=== PATIENT | male | born 1970 | race Caucasian/White ===

== ENCOUNTER 2017-08-23 21:13 | Emergency (ER) | payer MEDICAID ==
[~2017-08-23] VITALS: Ht 177.8 cm; Wt 79.0 kg
[~2017-08-23 21:13] MED LIST: ALBU8.5H3 INH; BEN25 PO; EPIN0.3P4 INJ; FAMO-96 PO; PRED20TA PO
[2017-08-23] MEDS ORDERED: FAMOTIDINE 20 MG INJ IV STA (21:19)
[2017-08-23] MEDS ORDERED: DIPHENHYDRAMINE 50 MG INJ IV STA (21:19)
[2017-08-23] MEDS ORDERED: EPINEPHrine 1 MG INJ IM STA (21:19)
[2017-08-23] MEDS ORDERED: METHYLPREDNISOLONE 125 MG INJ IV STA (21:19)
[2017-08-23 21:27] VITALS: TEMP 98.8; Ht 177.8 cm; Wt 79.0 kg
[2017-08-23] MEDS ORDERED: PRED20TA PO (21:55)
--- NOTE | 2017-08-23 22:49 | ERD ---
ER Documentation Chief Complaint Chief Complaint bib family for allergic reaction to shrimp, sob, wheezing, tongue itching HPI Patient is a 47-year-old male with asthma who presents with allergic reaction. The patient said that he ate seafood 45 minutes ago and now feels like his throat is swelling that he cannot breathe. His family gave him "2 pills" which they think might be Benadryl. He said that he ate shrimp and crab despite knowing that he has a seafood allergy. He does not currently have a primary doctor. He did not use his EpiPen at home. ROS All systems reviewed and are negative except as per history of present illness. Medications Home Meds Active Scripts Prednisone* (Prednisone*) 20 Mg Tab, 60 MG PO DAILY for 4 Days, TAB Prov:MIGUEL A GARCIA MD 08/23/17 Discontinued Scripts Albuterol Sulfate* (Proair HFA*) 8.5 Gm Hfa.aer.ad, 2 PUFF INH Q4H Y for WHEEZING AND SOB, #1 INHALER Prov:JONO DESHPANDE DO 09/16/15 Prednisone* (Prednisone*) 20 Mg Tab, 60 MG PO DAILY for 4 Days, TAB Prov:JONO DESHPANDE DO 09/16/15 Epinephrine (Epipen 2-Harpal) 0.3 Mg/0.3 Ml Pen.injctr, 1 EA INJ ONCE Y for ALLERGIC REACTION, #1 EA Prov:JONO DESHPANDE DO 09/16/15 Famotidine* (Pepcid*) 20 Mg Tablet, 20 MG PO BID for 4 Days, TAB Prov:JONO DESHPANDE DO 09/16/15 Diphenhydramine Hcl* (Benadryl*) 25 Mg Cap, 25 MG PO Q6, #30 CAP Prov:JONO DESHPANDE DO 09/16/15 Allergies Allergies: Coded Allergies: No Known Allergy (Unverified , 08/23/17) PMhx/Soc Medical and Surgical Hx: pt denies Medical Hx, pt denies Surgical Hx History of Surgery: No Anesthesia Reaction: No Hx Respiratory Disorders: Yes (ASTHMA) Hx Cardiac Disorders: No Hx Psychiatric Problems: No Hx Miscellaneous Medical Probl: Yes Hx Alcohol Use: No Hx Substance Use: No Hx Tobacco Use: No Smoking Status: Never smoker FmHx Family History: No diabetes Physical Exam Vitals Vital Signs Date Time Temp Pulse Resp B/P Pulse Ox O2 Delivery O2 Flow Rate FiO2 08/23/17 21: 98.8 78 18 145/81 100 08/23/17 21: 98.8 89 18 141/80 100 Room Air Physical Exam Const: Moderate distress secondary to his throat swelling Head: Atraumatic Eyes: Normal Conjunctiva ENT: Mild tongue swelling without stridor at this time Neck: Full range of motion..~ No meningismus. Resp: Clear to auscultation bilaterally Cardio: Regular rate and rhythm, no murmurs Abd: Soft, non tender, non distended. Normal bowel sounds Skin: No petechiae or rashes Back: No midline or flank tenderness Ext: No cyanosis, or edema Neur: Awake and alert Psych: Normal Mood and Affect Results 24 hrs Current Medications Medications (Trade) Dose Ordered Sig/Raymundo Route PRN Reason Start Time Stop Time Status Last Admin Dose Admin Diphenhydramine HCl (Benadryl) 25 mg ONCE STAT IV 08/23/17 21:19 08/23/17 21:20 DC 08/23/17 21:32 Epinephrine (EPINEPHrine) 0.3 mg ONCE STAT IM 08/23/17 21:19 08/23/17 21:20 DC 08/23/17 21:20 Famotidine (Pepcid Iv) 20 mg ONCE STAT IV 08/23/17 21:19 08/23/17 21:20 DC 08/23/17 21:32 Methylprednisolone Sodium Succinate (Solu-Medrol) 125 mg ONCE STAT IV 08/23/17 21:19 08/23/17 21:20 DC 08/23/17 21:32 Procedures/MDM Patient is a 47-year-old male who presents with acute anaphylaxis with throat swelling. The patient was given epinephrine, Solu-Medrol, Benadryl, and Pepcid immediately upon arrival. He was watched for 2 hours and says that he feels much better and that the swelling has gone away. I believe outpatient management is appropriate at this time but the patient will need close follow- up with the primary doctor within 24-48 hours. He will be given information for the local clinics. He will be given a prescription for 4 more days of prednisone and he has an EpiPen at home. He can return for any worsening symptoms. Critical Care: Time: 35 minutes excluding all billable procedures. Treatments/Evaluations: Close monitoring and treatment of unstable vital signs, cardiorespiratory, and neurologic status, while maintaining tight balance of fluid, respiratory, and cardiac interventions. Departure Diagnosis: Primary Impression: Allergic reaction Encounter type: initial encounter Qualified Code: T78.40XA - Allergic reaction, initial encounter Additional Impression: Acute anaphylaxis Encounter type: initial encounter Qualified Code: T78.2XXA - Acute anaphylaxis, initial encounter Condition: Fair Patient Instructions: Anaphylaxis, General [facility]errals: [facility] Usted se bustillo hecho un examen mdico de control que le indica que no est en lindy condicin que requiera tratamiento urgente en el Departamento de Emergencia. Un estudio ms profundo y el tratamiento de newman condicin pueden esperar sin ningn riesgo hasta que usted sea atendida/o en el consultorio de newman mdico o lindy cl kacie. Es responsabilidad suya arreglar lindy lamar para el seguimiento del ariana. MANEJO DE CONDICIONES NO URGENTES EN EL FUTURO 1) Si usted tiene un mdico de atencin primaria: Usted debera llamar a newman mdico de atencin primaria antes de venir al departamento de emergencia. Despus de las horas de consultorio, newman doctor o newman asociado/a est disponible por telfono. El mdico o enfermero de taryn en el servicio telefnico puede asesorarle por nicole medio para atender el problema, o ariana contrario se puede programar lindy lamar. 2) Si usted no tiene un mdico de atencin primaria: Llame al mdico o clnica de referencia que aparece abajo dev las horas de consultorio para hacer lindy lamar para que le vean. CLINICAS: [facility] [phone] [facility] [phone] [facility] [phone] [address] [facility] [phone] [facility]. [facility] [phone] [address] [facility]. [phone] [address] Additional Instructions: Llame al doctor MAANA y lubna lindy LAMAR PARA DENTRO DE 1-2 BUCK.Dgale a la secretaria que nosotros le instruimos hacer esta lamar.Avise o llame si newman condicin se empeora antes de la lamar. Regresa aqui si peor o no mejor. MIGUEL A GARCIA MD Aug 23, 2017 22:49
[2017-08-23 23:29] VITALS: BP 120/89; PULSE 63; RESP 18
[2017-08-23] MEDS ORDERED: EPIN0.3P4 INJ (23:46)
== END 2017-08-23 23:49 | disposition home or self-care (01) ==
LOC: E/R 21:13
DX: T78.2XXA Anaphylactic shock, unspecified, initial encounter (principal); J45.909 Unspecified asthma, uncomplicated
CPT/HCPCS: 96372; 96374; 96375; J1200; J2930; Z7502; Z7610